=== PATIENT | male | born 1960 | race African-American/Black ===

== ENCOUNTER 2017-08-18 23:23 | Observation (INO) | payer OTHER, MEDICARE ==
[2017-08-18] MEDS ORDERED: ASPIRIN 81 MG TABLET, CHEWABLE PO ONE (23:27)
--- NOTE | 2017-08-18 23:46 | ER Document Report ---
ED General - General Stated Complaint: CHEST PAIN Time Seen by Provider: 08/18/17 23:44 Mode of Arrival: Medic Information source: Patient Notes: This is a 57-year-old man with a history of hypertension, dyslipidemia, coronary artery disease (cardiac stent 1) who presents to the emergency room with left-sided chest tightness, palpitations and shortness of breath. Patient states he experienced some of the symptoms last night when sleeping and then experienced it this evening. - HPI Onset: Yesterday Onset/Duration: Gradual Quality of pain: Dull Severity: Moderate Pain Level: 2 Associated symptoms: Chest pain, Shortness of breath. denies: Nonproductive cough, Productive cough, Fever Exacerbated by: Denies Relieved by: Denies Similar symptoms previously: Yes Recently seen / treated by doctor: No Past Medical History - General Information source: Patient - Social History Smoking Status: Never Smoker Cigarette use (# per day): No Chew tobacco use (# tins/day): No Frequency of alcohol use: None Drug Abuse: None Lives with: Family Family History: None Patient has suicidal ideation: No Patient has homicidal ideation: No - Past Medical History Cardiac Medical History: Reports: Hx Coronary Artery Disease, Hx Hypercholesterolemia, Hx Hypertension Pulmonary Medical History: Reports: None EENT Medical History: Reports: None Neurological Medical History: Reports: None Endocrine Medical History: Reports: None Renal/ Medical History: Reports: None Malignancy Medical History: Reports None GI Medical History: Reports: None Musculoskeltal Medical History: Reports Other - Chronic pain Skin Medical History: Reports None Psychiatric Medical History: Reports: None Traumatic Medical History: Reports: None Infectious Medical History: Reports: None Past Surgical History: Reports: Hx Cardiac Catheterization Review of Systems - Review of Systems Constitutional: denies: Chills, Fever EENT: No symptoms reported Cardiovascular: See HPI Respiratory: See HPI Gastrointestinal: No symptoms reported Genitourinary: No symptoms reported Male Genitourinary: No symptoms reported Musculoskeletal: No symptoms reported Skin: No symptoms reported Hematologic/Lymphatic: No symptoms reported Neurological/Psychological: No symptoms reported Physical Exam - Vital signs Vitals: Pulse Ox 97 08/18/17 23:27 Notes: Physical exam: GENERAL: HEAD: Atraumatic, normocephalic. EYES: Pupils equal round and reactive to light, extraocular movements intact, sclera anicteric, conjunctiva are normal. ENT: TMs normal, nares patent, oropharynx clear without exudates. Moist mucous membranes. NECK: Normal range of motion, supple without obvious mass or JVD. LUNGS: Breath sounds clear to auscultation bilaterally and equal. No wheezes rales or rhonchi. HEART: Regular rate and rhythm without murmurs, rubs or gallops. ABDOMEN: Soft, normoactive bowel sounds. No tenderness to palpation. No guarding, no rebound. No masses appreciated. EXTREMITIES: Braces to both lower extremities NEUROLOGICAL: Cranial nerves II through XII grossly intact. Normal speech, moving all extremities. PSYCH: Normal mood, normal affect. SKIN: Warm, Dry, normal turgor, no rashes or lesions noted. Course - Vital Signs Vital signs: Temp Pulse Resp BP Pulse Ox 17 116/60 96 08/19/17 02:01 08/19/17 02:01 08/19/17 02:01 - Laboratory Result Diagrams: 08/18/17 23:53 08/18/17 23:53 Laboratory results interpreted by me: 08/18/17 08/18/17 23:53 23:53 MCH 33.5 H Eosinophils % 7.8 H Sodium 146.6 H Creatine Kinase 357 H - Diagnostic Test Radiology reviewed: Image reviewed, Reports reviewed - The chest x-ray is interpreted as some atelectasis with a possible infiltrate (patient has not had any cough, fever or sputum production). - EKG Interpretation by Me Rate: Normal Rhythm: NSR - EKG shows normal sinus rhythm with a ventricular rate of 52, there are inverted T waves anteriorly and there is no old EKG to compare. Right -sided leads show no ST elevation in V4. Discharge - Discharge Clinical Impression: Chest pain Condition: Stable Disposition: ADMITTED OBSERVATION Admitting Provider: Hospitalist - Dr. Greene Unit Admitted: Telemetry
[2017-08-19 00:13] LABS: ABSOLUTE BASOPHILS # (AUTO) 0.1 10^3/uL (0.0-0.2); ABSOLUTE EOSINOPHILS # (AUTO) 0.6 10^3/uL (0.0-0.6); ABSOLUTE MONOCYTES (AUTO) 0.6 10^3/uL (0.1-1.4); ABSOLUTE NEUT (AUTO) 4.3 10^3/uL (1.7-8.2); BASOPHILS % (AUTO) 1.4 % (0-2); EOSINOPHILS % (AUTO) 7.8 % (0-6); HEMOGLOBIN 15.7 g/dL (13.5-17.0); HGB HCT DIFFERENCE 2.1; LYMPHOCYTES % (AUTO) 26.7 % (13-45); MEAN CORPUSCULAR HEMOGLOBIN 33.5 pg (27.0-33.4); MEAN CORPUSCULAR HGB CONC 34.8 g/dL (32.0-36.0); MEAN CORPUSCULAR VOLUME 96 fl (80-97); MONOCYTES % (AUTO) 7.6 % (3-13); RED BLOOD COUNT 4.67 10^6/uL (4.35-5.55); RED CELL DISTRIBUTION WIDTH 13.6 % (11.5-14.0); SEGMENTED NEUTROPHILS % (AUTO) 56.5 % (42-78); WHITE BLOOD COUNT 7.6 10^3/uL (4.0-10.5)
[2017-08-19 00:24] LABS: ALANINE AMINOTRANSFERASE 32 U/L (21-72); ALBUMIN 4.3 g/dL (3.5-5.0); ALKALINE PHOSPHATASE 98 U/L (38-126); ANION GAP 14 (5-19); ASPARTATE AMINO TRANSFERASE 23 U/L (17-59); BILIRUBIN,DIRECT 0.3 mg/dL (0.0-0.4); BILIRUBIN,TOTAL 0.4 mg/dL (0.2-1.3); BLOOD UREA NITROGEN 17 mg/dL (7-20); CALCIUM 9.7 mg/dL (8.4-10.2); CARBON DIOXIDE 27 mmol/L (22-30); CHLORIDE 106 mmol/L (98-107); CREATINE KINASE 357 U/L (55-170); CREATININE RESULT 1.09 mg/dL (0.52-1.25); GLUCOSE 108 mg/dL (75-110); SODIUM 146.6 mmol/L (137-145); TOTAL PROTEIN 7.2 g/dL (6.3-8.2)
[2017-08-19 00:36] LABS: CREATINE KINASE MB 4.24 ng/mL (<4.55); TROPONIN I < 0.012 ng/mL
--- NOTE | 2017-08-19 00:39 | RADIOLOGY REPORT (SQ) ---
EXAM DESCRIPTION: CHEST SINGLE VIEW COMPLETED DATE/TIME: 08/19/2017 12:03 am REASON FOR STUDY: cp COMPARISON: None. EXAM PARAMETERS: NUMBER OF VIEWS: One view. TECHNIQUE: Single frontal radiographic view of the chest acquired. RADIATION DOSE: NA LIMITATIONS: None. FINDINGS: LUNGS AND PLEURA: Possible streakiness of the left lung base. Minimal blunting of the lef t costophrenic angle. MEDIASTINUM AND HILAR STRUCTURES: No masses. Contour normal. HEART AND VASCULAR STRUCTURES: Heart normal in size. Normal vasculature. BONES: No acute findings. HARDWARE: None in the chest. OTHER: No other significant finding. IMPRESSION: Small left lower lobar pneumonia/atelectasis. 7-12 week surveilance radiographs recomme nded. TECHNICAL DOCUMENTATION: JOB ID: [id number]
[2017-08-19] MEDS ORDERED: MORPHINE SULFATE 10 MG/ML INJ IV ONE (01:15)
[2017-08-19] MEDS ORDERED: NITROGLYCERIN 2% OINTMENT 1 GM PACKET TP ONE (01:16)
[2017-08-19] MEDS ORDERED: PROMETHAZINE HCL 25 MG TABLET PO PRN (04:32)
[2017-08-19] MEDS ORDERED: ACETAMINOPHEN 325 MG TABLET PO PRN (04:32)
[2017-08-19] MEDS ORDERED: MAG HYDROX/AL HYDROX/SIMETH SUSP 30 ML UDCUP PO PRN (08:04)
--- NOTE | 2017-08-19 08:09 | EKG REPORT ---
SEVERITY:- ABNORMAL ECG - SINUS RHYTHM LEFT ANTERIOR FASCICULAR BLOCK ANTERIOR INFARCT, AGE INDETERMINATE : Confirmed by: Brijesh Levine MD 19-Aug-2017 08:09:29
--- NOTE | 2017-08-19 08:10 | EKG REPORT ---
SEVERITY:- ABNORMAL ECG - SINUS RHYTHM LEFT ANTERIOR FASCICULAR BLOCK ABNORMAL T, CONSIDER ISCHEMIA, LATERAL LEADS : Confirmed by: Brijesh Levine MD 19-Aug-2017 08:09:46
[2017-08-19] MEDS ORDERED: NICOTINE 7 MG/24 HR PATCH.TD24 TD PRN (08:48)
--- NOTE | 2017-08-19 08:48 | PDOC H&P ---
History of Present Illness Admission Date/PCP: 08/19/17 01:28 Primary CARE provider none Patient complains of: Chest pain History of Present Illness: YA ROBLERO is a 57 year old -Gabonese male with underlying known coronary artery disease, having undergone stent implant 1 in 2007 who presents to the emergency room for evaluation of above complaint. Patient has been discussed with emergency room physician who evaluated the patient. He describes the onset the evening of the , as he was trying to sleep, of mild to moderate intensity left-sided chest tightness, palpitations, and shortness of breath. Increased with certain movements and deep breathing. No radiation of the discomfort. Positive associated sweating. States the pain is quite similar to that he experienced prior to the time when he had his stent implant. No history of congestive heart failure, atrial fibrillation, or atrial flutter. No history of pulmonary embolus or DVT. No recent long trip with prolonged inactivity, or unusual lower extremity swelling or tenderness. Denies fever or chills or cough. Currently resting quietly, chest pain-free. Dictation via voice recognition software. Laboratory results are listed in [facility] and are reviewed. X-ray summary results are listed below, with full report(s) reviewed. EKG 2 reviewed. No prior EKG available for comparison. Social history/personal habits: . One child. Unemployed. 3-4 cigars per week. Occasional glass of wine. Occasional marijuana. Denies other illicit drug use. Allergies/adverse reactions are listed in [facility] and are reviewed. Home medications initially autopopulated into [employer] may not accurately reflect patient's true medications, dosages, and/or frequencies. seating and mobility technologist to reconcile medications. Unfortunately, patient not certain of medications/dosages/frequencies. REVIEW OF SYSTEMS: Constitutional: See history and present illness. Eyes: Wears glasses. ENT: No swallowing problems or complaints. Denies hearing loss. Pulmonary: See history and present illness. Cardiovascular: See history and present illness. Gastrointestinal: No current complaints, including nausea or vomiting. Skin: No current complaints, including rashes. Hematologic: Denies easy bruising. Neurologic: No current complaints, including numbness or tingling. Musculoskeletal: Joint pain from arthritis. Psychiatric: Mild anxiety and depression. Denies suicidal or homicidal ideation. Endocrine: No current complaints, including polyuria. Genitourinary: No current complaints, including dysuria. PHYSICAL EXAMINATION: 5 feet 10 inches tall. 102.1 kg. BMI 32.3 kg/m. Temperature 98.3. Pulse 50 and regular. Blood pressure 147/71. Respirations are 18 and unlabored. 97% saturation on room air. Slightly obese otherwise well-developed -Gabonese male appearing approximately his stated age. Pleasant awake alert and cooperative. Rather talkative gentleman. No obvious distress other than somewhat anxious. Female floor nurse Isabela present. Skin is warm and dry. No grossly obvious evidence of rash in areas of skin examined. No subcutaneous nodules palpated. ENT: Hearing grossly normal to normal conversation. Tongue midline on protrusion pink and slightly tacky. Eyes: No scleral icterus. Pupils equal and reactive to light at 4 mm. Old [place] conjunctivae. Neck is supple and nontender to gentle active range of motion and palpation. Midline trachea. No palpable thyroid nodule mass enlargement or tenderness. Lymphatic: No palpable cervical or clavicular nodes. Neck and lymphatic exams limited by patient body habitus. Psychiatric: Reasonable insight into acute and chronic medical issues. Oriented to time location and why here. Lungs: Auscultation reveals clear and equal breath sounds bilaterally. No use of accessory respiratory muscles. Cardiovascular: Heart regular rate and rhythm, without gallop murmur or rub. No carotid or abdominal aortic bruits. No ankle or pedal edema. Palpable dorsalis pedis pulses. Abdomen:soft slightly obese nontender with positive bowel sounds. Unable to adequately evaluate abdomen for masses or organomegaly due to body habitus. Upper abdominal compression does not reproduce his previously noted chest discomfort, but left anterior chest wall compression does. Extremities: Feet are warm and dry. No calf tenderness to compression. No grossly obvious visual evidence of calf swelling. Gentle manipulation of lower extremities fails to reveal any obvious evidence of injury or instability to knees hips or ankles, though patient has fairly restricted range of motion at ankles due to prior bilateral ankle fusion surgery. Neurologic: Moves upper extremities grossly normally. Patellar reflexes absent. Absent Babinski. Light touch is intact at feet. Dorsiflexion and plantarflexion of feet 4 / 5 and symmetric. Past Medical History Cardiac Medical History: Reports: Coronary Artery Disease, Hyperlipidema, Hypertension Denies: Atrial Fibrillation, Congestive Heart Failure, DVT, Pulmonary Embolism Pulmonary Medical History: Reports: Sleep Apnea - Uncertain settings on his home machine Denies: Asthma, Chronic Obstructive Pulmonary Disease (COPD) EENT Medical History: Reports: Eyes - Reading glasses Denies: Ears, Throat Neurological Medical History: Denies: Hemorrhagic CVA, Ischemic CVA, Seizures Endocrine Medical History: Denies: Diabetes Mellitus Type 1, Diabetes Mellitus Type 2, Hyperthyroidism, Hypothyroidism Renal/ Medical History: Reports: Other - Occasional hematuria since his prostatectomy for carcinoma; prior MD aware. Malignancy Medical History: Reports: None, Other - Prostate GI Medical History: Denies: Cirrhosis, Gastroesophageal Reflux Disease, Hepatitis, Peptic Ulcer Disease Musculoskeltal Medical History: Reports: Arthritis Skin Medical History: Reports: None Psychiatric Medical History: Reports: Alcohol Dependency, Depression, General Anxiety Disorder, Substance Abuse, Tobacco Dependency, Other - Occasional marijuana; Occasional glass of wine Traumatic Medical History: Reports: None Infectious Medical History: Denies: Hepatitis B, Hepatitis C Past Surgical History Past Surgical History: Reports: Coronary Stent - 2007, Orthopedic Surgery - Bilateral ankle fusion, due to adverse reaction to nifedipine, per pt., Other - Prostatectomy for carcinoma Social History Information Source: Patient, Emergency Med Personnel, [facility] Records Lives with: Family Smoking Status: Current Some Day Smoker Frequency of Alcohol Use: Occasional Hx Recreational Drug Use: No Drugs: Marijuana Hx Prescription Drug Abuse: No - Advance Directive Resuscitation Status: Full Code Surrogate healthcare decision maker:: Family History Family History: None Parental Family History Reviewed: Yes - Uncertain cause of parents deaths Children Family History Reviewed: Yes - Healthy Sibling(s) Family History Reviewed.: Yes - Healthy Medication/Allergy Home Medications: Amlodipine Besylate [Norvasc 10 mg Tablet] 10 mg PO DAILY 08/19/17 Atorvastatin Calcium [Lipitor 40 mg Tablet] 40 mg PO QHS 08/19/17 Citalopram Hydrobromide [Celexa 40 mg Tablet] 40 mg PO DAILY 08/19/17 Losartan Potassium [Cozaar 100 mg Tablet] 100 mg PO DAILY 08/19/17 RX: Allopurinol [Zyloprim 100 mg Tablet] 100 mg PO DAILY 08/19/17 RX: Aspirin [Ecotrin 81 mg EC Tablet] 81 mg PO DAILY tabec 08/19/17 Allergies/Adverse Reactions: nifedipine Allergy (Verified 08/19/17 06:21) Physical Exam Vital Signs: Temp Pulse Resp BP Pulse Ox 98.3 F 42 L 18 147/71 H 97 08/19/17 04:09 08/19/17 07:00 08/19/17 04:09 08/19/17 04:09 08/19/17 04:09 Intake & Output 08/18/17 08/19/17 08/20/17 00:59 00:59 00:59 Weight 102.1 kg Results Laboratory Results: 08/19/17 05:00 Troponin I < 0.012 Impressions: Chest X-Ray 08/18/17 23:27 IMPRESSION: Small left lower lobar pneumonia/atelectasis. 7-12 week surveilance radiographs recommended. Assessment & Plan - Diagnosis (1) Abnormal chest x-ray Is this a current diagnosis for this admission?: Yes Plan: Suspect only atelectasis; no biochemical or outward clinical evidence of pneumonia. Will forego antibiotics at this point in time. Incentive spirometry. (2) Elevated d-dimer Is this a current diagnosis for this admission?: Yes Plan: Ventilation/perfusion lung scan. (3) Precordial chest pain Is this a current diagnosis for this admission?: Yes Plan: Likely musculoskeletal, but given his known coronary artery disease, Patient will be placed in observation bed under chest pain protocol. Patient understands to notify staff should chest pain recur. Serial troponin . Repeat EKG. lipid panel. I have strongly encouraged patient to be careful getting out of bed, to avoid a fall with injury. Knee high SCDs for DVT prophylaxis, along with subcu Lovenox. Impression and plans were discussed with patient, who concurs . Time spent in evaluation and management of patient: 63 minutes. (4) Marijuana use Is this a current diagnosis for this admission?: Yes (5) Stented coronary artery Is this a current diagnosis for this admission?: Yes (6) HLD (hyperlipidemia) Qualifiers: Hyperlipidemia type: unspecified Qualified Code(s): E78.5 - Hyperlipidemia , unspecified Is this a current diagnosis for this admission?: Yes Plan: Lipid panel. Resume home medications as appropriate once these have been determined and reviewed. (7) History of COPD Is this a current diagnosis for this admission?: Yes (8) COSMO (obstructive sleep apnea) Is this a current diagnosis for this admission?: Yes Plan: CPAP nightly (9) Tobacco dependency Is this a current diagnosis for this admission?: Yes Plan: As needed nicotine patch - Time Time Spent: 50 to 70 Minutes Medications reviewed and adjusted accordingly: No - Patient uncertain about meds. Anticipated discharge: Home Within: within 24 hours
--- NOTE | 2017-08-19 09:23 | RADIOLOGY REPORT (SQ) ---
EXAM DESCRIPTION: NM LUNG VENT/PERF SCAN COMPLETED DATE/TIME: 08/19/2017 9:16 am REASON FOR STUDY: elev d dimer COMPARISON: Single-view chest from yesterday. RADIONUCLIDE AND DOSE: 5.3 millicuries TC-99m MAA Intravenous 30.4 millicuries TC-99m DTPA Inhaled aerosol TECHNIQUE: Eight views of the lungs acquired post ventilation of DTPA aerosol. Eight matching views of the lungs acquired following injection of MAA. LIMITATIONS: None. FINDINGS: VENTILATION: Symmetric and homogeneous distribution of DTPA aerosol during ventilatory pha se. No significant areas of photopenia. PERFUSION: Perfusion images with normal homogenous activity and no wedge-shaped or segmental defects. No ventilation-perfusion mismatches. OTHER: No other significant finding. IMPRESSION: NORMAL VENTILATION-PERFUSION LUNG SCAN. NEGATIVE FOR PULMONARY EMBOLI. TECHNICAL DOCUMENTATION: JOB ID: [id number] [employer]- All Rights Reserved
[2017-08-19] MEDS ORDERED: ENOXAPARIN SODIUM INJ 40 MG/0.4 ML DISP.SYRIN SUBCUT SCH (10:00)
[2017-08-19] MEDS ORDERED: ASPIRIN 81 MG TABLET, ENT COATED PO SCH (10:00)
[2017-08-19] MEDS ORDERED: DOCUSATE SODIUM 100 MG CAPSULE PO SCH (10:00)
[2017-08-19 11:28] LABS: CHOLESTEROL 168.96 mg/dL (0-200); Direct HDL 40 mg/dL (>40); TRIGLYCERIDES 74 mg/dL (<150)
[2017-08-19 11:39] LABS: DIRECT LDL 120 mg/dL (<100)
[2017-08-19 12:48] VITALS: BP 159/85
--- NOTE | 2017-08-19 13:33 | PDOC TRANSFER SUMMARY ---
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 Low clinical suspicion of cardiac source of pain. Troponins negative. Unfortunately, nuclear stress testing must be delayed x 48 hrs 2/2 V/Q scan which was completed earlier today and pt is unable to participate in treadmill testing. Pt is agreeable with close Cardiology follow-up for outpatient echo and stress testing. D/C home on ASA and to continue Statin. (2) Elevated d-dimer Is this a current diagnosis for this admission?: Yes Summary: Ventilation-perfusion lung scan negative for pulmonary emboli. Low clinical suspicion for PE. (3) SOB (shortness of breath) Summary: Resolved. Wears CPAP nightly for COPD. (4) Marijuana use Is this a current diagnosis for this admission?: Yes (5) Stented coronary artery Is this a current diagnosis for this admission?: Yes Summary: S/p cardiac stent x1 2007. (6) HLD (hyperlipidemia) Is this a current diagnosis for this admission?: Yes Summary: Lipid panel reviewed and acceptable; continue home Statin. (7) COSMO (obstructive sleep apnea) Is this a current diagnosis for this admission?: Yes (8) Tobacco dependency Is this a current diagnosis for this admission?: Yes - Additional Information Resuscitation Status: Full Code Discharge Diet: Cardiac Discharge Activity: Activity As Tolerated, Balance Activity w/Rest Home Medications: Allopurinol [Zyloprim 100 mg Tablet] 100 mg PO DAILY 08/19/17 Amlodipine Besylate [Norvasc 10 mg Tablet] 10 mg PO DAILY 08/19/17 Aspirin [Ecotrin 81 mg EC Tablet] 81 mg PO DAILY tabec 08/19/17 Atorvastatin Calcium [Lipitor 40 mg Tablet] 40 mg PO QHS 08/19/17 Citalopram Hydrobromide [Celexa 40 mg Tablet] 40 mg PO DAILY 08/19/17 Losartan Potassium [Cozaar 100 mg Tablet] 100 mg PO DAILY 08/19/17 History of Present Illness Admission Date/PCP: 08/19/17 08:04 Hospital Course Hospital Course: Pt was admitted for Chest Pain observation early this AM for left sternal chest pain with left arm heaviness. He reported that the pain was similar to previous episode when he underwent cardiac stenting x1 in 2007. He denies associated solitario, dizziness, dyspnea, diaphoresis, or nausea. Initial troponin was negative, but given his known coronary artery disease, he was admitted with chest pain protocol. Serial troponins remained negative. He did have an elevated d-dimer and so underwent a V/Q scan which was negative for PE. Unfortunately, nuclear stress testing must be delayed x 48 hrs secondary to the V/Q scan and pt is unable to participate in treadmill testing. Cardiology was consulted; however, would not be able to see patient until late this evening. Pt reports that his chest pain has resolved and that he wishes to be discharged home with close Cardiology follow-up for outpatient echo and stress testing. D/C home on ASA and to continue Statin. Physical Exam Vital Signs: Temp Pulse Resp BP Pulse Ox 97.9 F 78 19 159/85 H 96 08/19/17 10:00 08/19/17 10:00 08/19/17 10:00 08/19/17 10:00 08/19/17 10:00 General appearance: PRESENT: no acute distress, well-developed, well-nourished Head exam: PRESENT: atraumatic, normocephalic Eye exam: PRESENT: conjunctiva pink, EOMI, PERRLA. ABSENT: scleral icterus Ear exam: PRESENT: normal external ear exam Mouth exam: PRESENT: moist, tongue midline Neck exam: PRESENT: tenderness - Left lateral tenderness w/ palpation and movement. ABSENT: carotid bruit, JVD, lymphadenopathy, thyromegaly Respiratory exam: PRESENT: clear to auscultation lalo, symmetrical, unlabored. ABSENT: rales, rhonchi, wheezes Cardiovascular exam: PRESENT: RRR, +S1, +S2. ABSENT: diastolic murmur, gallop, rubs, systolic murmur Pulses: PRESENT: normal dorsalis pedis pul Vascular exam: PRESENT: normal capillary refill GI/Abdominal exam: PRESENT: normal bowel sounds, soft. ABSENT: distended, guarding, mass, organolmegaly, rebound, tenderness Rectal exam: PRESENT: deferred Extremities exam: PRESENT: full ROM. ABSENT: calf tenderness, clubbing, pedal edema Musculoskeletal exam: PRESENT: ambulatory, full ROM Neurological exam: PRESENT: alert, awake, oriented to person, oriented to place , oriented to time, oriented to situation, CN II-XII grossly intact. ABSENT: motor sensory deficit Psychiatric exam: PRESENT: appropriate affect, normal mood. ABSENT: homicidal ideation, suicidal ideation Skin exam: PRESENT: dry, intact, warm. ABSENT: cyanosis, rash Results Laboratory Results: 08/19/17 10:50 Triglycerides 74 Cholesterol 168.96 LDL Cholesterol Direct 120 H VLDL Cholesterol 15.0 HDL Cholesterol 40 08/19/17 10:50 Troponin I < 0.012 Impressions: Chest X-Ray 08/18/17 23:27 IMPRESSION: Small left lower lobar pneumonia/atelectasis. 7-12 week surveilance radiographs recommended. Lung Scan-VQ CA 08/19/17 06:46 IMPRESSION: NORMAL VENTILATION-PERFUSION LUNG SCAN. NEGATIVE FOR PULMONARY EMBOLI. Plan Time Spent: Greater than 30 Minutes
[2017-08-19] MEDS ORDERED: INFLUENZA ADLT QUAD (36MOS+) 2017-18 VAC 0.5 ML SYR IM PRN (13:52)
--- NOTE | 2017-08-19 18:15 | EKG REPORT ---
SEVERITY:- ABNORMAL ECG - SINUS BRADYCARDIA LEFT ANTERIOR FASCICULAR BLOCK NONSPECIFIC T ABNORMALITIES, DIFFUSE LEADS : Confirmed by: Brijesh Levine MD 19-Aug-2017 18:14:23
--- NOTE | 2017-08-19 19:27 | PDOC CONSULTATION ---
Consultation Consult Date: 08/19/17 Attending physician:: EDGARDO MCCOLLUM Consult reason:: Chest pain History of Present Illness Admission Date/PCP: 08/19/17 08:04 Patient complains of: Chest pain History of Present Illness: YA ROBLERO is a 57 year old -[place] male with underlying known coronary artery disease, having undergone stent implant 1 in 2007 who presents to the emergency room for evaluation of above complaint. He describes the onset on the evening of the , as he was trying to sleep of mild to moderate intensity left-sided chest tightness, palpitations, and shortness of breath. Increased with certain movements and deep breathing. No radiation of the discomfort. Positive associated sweating. States the pain is quite similar to that he experienced prior to the time when he had his stent implant. No history of congestive heart failure, atrial fibrillation, or atrial flutter. No history of pulmonary embolus or DVT. No recent long trip with prolonged inactivity, or unusual lower extremity swelling or tenderness. Denies fever or chills or cough. Currently resting quietly, chest pain-free. This history was reviewed, supplemented and confirmed. So far patient's cardiac enzymes has been negative 3. EKG shows minor nonspecific T-wave inversion. VQ scan was noted to be negative. Patient was recommended to have a nuclear stress test but he declined to pursue this as an inpatient. Patient therefore advised to follow with me tomorrow in the office. Past Medical History Cardiac Medical History: Reports: Coronary Artery Disease, Hyperlipidema, Hypertension Denies: Atrial Fibrillation, Congestive Heart Failure, DVT, Pulmonary Embolism Pulmonary Medical History: Reports: None, Sleep Apnea - Uncertain settings on his home machine Denies: Asthma, Chronic Obstructive Pulmonary Disease (COPD) EENT Medical History: Reports: None, Eyes - Reading glasses Denies: Ears, Throat Neurological Medical History: Reports: None Denies: Hemorrhagic CVA, Ischemic CVA, Seizures Endocrine Medical History: Reports: None Denies: Diabetes Mellitus Type 1, Diabetes Mellitus Type 2, Hyperthyroidism, Hypothyroidism Renal/ Medical History: Reports: None, Other - Occasional hematuria since his prostatectomy for carcinoma; prior MD aware. Malignancy Medical History: Reports: None, Other - Prostate GI Medical History: Reports: None Denies: Cirrhosis, Gastroesophageal Reflux Disease, Hepatitis, Peptic Ulcer Disease Musculoskeltal Medical History: Reports: Arthritis, Other - Chronic pain Skin Medical History: Reports: None Psychiatric Medical History: Reports: None, Alcohol Dependency, Depression, General Anxiety Disorder, Substance Abuse, Tobacco Dependency, Other - Occasional marijuana; Occasional glass of wine Traumatic Medical History: Reports: None Infectious Medical History: Reports: None Denies: Hepatitis B, Hepatitis C Past Surgical History Past Surgical History: Reports: Cardiac Catheterization, Coronary Stent - 2007, Orthopedic Surgery - Bilateral ankle fusion, due to adverse reaction to nifedipine, per pt., Other - Prostatectomy for carcinoma Social History Information Source: Patient Lives with: Family Smoking Status: Current Some Day Smoker Frequency of Alcohol Use: Occasional Hx Recreational Drug Use: No Drugs: Marijuana Hx Prescription Drug Abuse: No - Advance Directive Resuscitation Status: Full Code Surrogate healthcare decision maker:: Patient's live-in girlfriend is surrogate decision maker. Family History Family History: None, Hypertension Parental Family History Reviewed: Yes Children Family History Reviewed: Yes Sibling(s) Family History Reviewed.: Yes Medication/Allergy Home Medications: Allopurinol [Zyloprim 100 mg Tablet] 100 mg PO DAILY 08/19/17 Amlodipine Besylate [Norvasc 10 mg Tablet] 10 mg PO DAILY 08/19/17 Aspirin [Ecotrin 81 mg EC Tablet] 81 mg PO DAILY tabec 08/19/17 Atorvastatin Calcium [Lipitor 40 mg Tablet] 40 mg PO QHS 08/19/17 Citalopram Hydrobromide [Celexa 40 mg Tablet] 40 mg PO DAILY 08/19/17 Losartan Potassium [Cozaar 100 mg Tablet] 100 mg PO DAILY 08/19/17 Allergies/Adverse Reactions: nifedipine Allergy (Verified 08/19/17 06:21) Review of Systems Review of Systems: Please see history of present illness and past medical history as wall. Constitutional: No fever or chills reported. Head : No recent chronic headaches, recent head injury. Eyes: No recent eye pain, diplopia, redness, discharge, acute visual changes. Ears: No recent chronic ear pain, acute hearing loss, ear discharge. Oral cavity: No recent ulcerations, bleeding, oral cavity discomfort. Neck: No recent acute neck pain reported. Hematologic: No recent easy bruising or bleeding or hematologic malignancy reported. Lymphatic: No recent lymphatic malignancy, chronic lymphadenopathy reported yet Cardiovascular system review: See history of present illness. Respiratory system review: No recent chronic cough, hemoptysis, blood clots in the lungs reported. Mild Shortness of breath on exertion Gastrointestinal system review: Negative for any recent acute or chronic abdominal pain, hematemesis, melena, recent change in bowel habits. Genitourinary system review: No recent acute or chronic hematuria, flank pain, UTI etc. reported. Skin system review: Negative for any recent abnormal bruising, no rash, no pruritus reported. Neurologic: No prior history of strokes, mini strokes, seizure disorder. Psychologic: No history of major psychosis or major depression reported. Musculoskeletal: Minor aches and pains reported. No acute joint swelling reported. Patient has history of gout and currently wearing bilateral ankle braces for this and possibly for dropped foot bilaterally. Endocrine: No recent polyuria, polydipsia, recent heat or cold intolerance. Physical Exam Vital Signs: Temp Pulse Resp BP Pulse Ox 97.9 F 78 19 159/85 H 96 08/19/17 13:48 08/19/17 13:48 08/19/17 13:48 08/19/17 13:48 08/19/17 13:48 Exam: GENERAL: well-nourished and in no acute distress. Alert and oriented x3 HEAD: Atraumatic, normocephalic. EYES: Pupils equal round and reactive to light, extraocular movements intact, sclera anicteric, conjunctiva are normal. ENT: TMs normal, nares patent, oropharynx clear without exudates. Moist mucous membranes. No oral ulcerations or bleeding gums noted NECK: supple without lymphadenopathy. Trachea is central. No cervical or axillary lymphadenopathy noted. Carotids are 2+, JVD WNL LUNGS: Respiration seems nonlabored, no significant accessory muscle action noted. Breath sounds clear to auscultation bilaterally and equal noted. No wheezes rales or rhonchi noted. No significant dullness noted on percussion. CHEST: Palpation of the chest wall shows no significant chest wall tenderness. No other significant abnormalities noted. 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 ABDOMEN: Soft, no significant tenderness appreciated, normoactive bowel sounds. No guarding, no rebound. No rigidity noted . No masses appreciated. EXTREMITIES: Pedal pulses are 1-2+, no calf tenderness noted. No clubbing or cyanosis.trace to 1+ pedal edema noted NEUROLOGICAL: Focused neurological exam showed no significant neurologic deficit. Normal speech, no focal weakness appreciated. PSYCH: Normal mood, normal affect. Judgment and insight within normal limits. SKIN: No significant ecchymosis, rash, ulcerations or signs of pruritus noted. MUSCULOSKELETAL EXAM: No significant joint swelling noted. Both ankles noted bilaterally with ankle braces and support. Results Laboratory Results: 08/19/17 10:50 Triglycerides 74 Cholesterol 168.96 LDL Cholesterol Direct 120 H VLDL Cholesterol 15.0 HDL Cholesterol 40 08/19/17 10:50 Troponin I < 0.012 EKG Comments: Sinus rhythm, minor nonspecific T-wave inversion lateral chest leads. Possible LVH Impressions: Chest X-Ray 08/18/17 23:27 IMPRESSION: Small left lower lobar pneumonia/atelectasis. 7-12 week surveilance radiographs recommended. Lung Scan-VQ NM 08/19/17 06:46 IMPRESSION: NORMAL VENTILATION-PERFUSION LUNG SCAN. NEGATIVE FOR PULMONARY EMBOLI. Assessment & Plan - Diagnosis (1) Chest pain Qualifiers: Chest pain type: unspecified Qualified Code(s): R07.9 - Chest pain, unspecified Is this a current diagnosis for this admission?: Yes (2) SOB (shortness of breath) Is this a current diagnosis for this admission?: Yes (3) HLD (hyperlipidemia) Qualifiers: Hyperlipidemia type: unspecified Qualified Code(s): E78.5 - Hyperlipidemia , unspecified Is this a current diagnosis for this admission?: Yes (4) History of COPD Is this a current diagnosis for this admission?: Yes (5) COSMO (obstructive sleep apnea) Is this a current diagnosis for this admission?: Yes (6) Stented coronary artery Is this a current diagnosis for this admission?: Yes (7) Tobacco dependency Is this a current diagnosis for this admission?: Yes - Notes Notes: Chest pain: So far cardiac enzymes are negative. EKG not showing any acute ST segment changes. Feel that patient will benefit from a nuclear stress test. This is in view of history of prior stent placement and known CAD. Patient however wishes to have this performed as an outpatient. Patient will be seen in the office. Shortness of breath: Patient has been advised to quit smoking. Patient to report any further problems or any worsening. Hyperlipidemia: LDL goal is less than 70. Recommend statin therapy at least intermediate or high dose, of high potency status. Periodic lipid panel and liver panel is indicated. Patient to report any significant muscle discomfort or other side effects. COPD: Patient advised in smoking cessation. Obstructive sleep apnea: Patient advised compliance with CPAP therapy. Stented coronary arteries: Currently stable. Patient to continue with dual antiplatelet therapy. Tobacco dependency: Tobacco cessation advised. - Time Time Spent: 30 to 50 Minutes - CODE STATUS was discussed, patient remains full code. Surrogate decision-maker unchanged. Multiple medical problems were addressed. More than 50% of the time spent coordinating care, discussing management plans with involved caregivers. Management plans discussed with involved personnels. Medical decision making was of moderate to high complexity , patient's has multiple comorbidities. Medications reviewed and adjusted accordingly: Yes
--- NOTE | 2017-08-20 13:24 | XCELERA REPORT ---
[address] [address] Transthoracic Echocardiogram Report Name: YA ROBLERO Age: 57 yrs Gender: Male : 1960 Patient Status: Inpatient Patient Location: [address] [place] [address] Study Date: 08/19/2017 02:20 PM Height: 70 in Weight: 225 lb BSA: 2.2 m2 Procedure: A complete two-dimensional transthoracic echocardiogram was performed (2D, M-mode, spectral and color flow Doppler). The study was technically adequate with some images being suboptimal in quality. Reason For Study: chest pain Ordering Physician: MAGAN GILLETTE Performed By: Nataly Rebolledo Interpretation Summary The left ventricular ejection fraction is normal. There is mild concentric left ventricular hypertrophy. Doppler measurements suggest pseudonormalized left ventricular relaxation, which is associated with grade II/IV or mild to moderate diastolic dysfunction The left ventricle is grossly normal size. Wall motion cannot be accurately commented on, but no definite regional wall motion abnormalities noted. The right ventricular systolic function is normal. The left atrium is moderately dilated. The right atrium is normal in size There is a trace to mild amount of mitral regurgitation There is no mitral valve stenosis. There is a mild amount of aortic regurgitation There is no aortic valve stenosis There is a trace or physiologic amount of tricuspid regurgitation Tricuspid regurgitation jet envelope not well defined to measure RV systolic pressure accurately. The aortic root is not well visualized but is probably normal size. The inferior vena cava appeared normal and decreased > 50% with respiration (RAP 5-10 mmHg) There is no pericardial effusion. MMode/2D Measurements & Calculations RVDd: 3.5 cm LVIDd: 5.8 cm FS: 32.5 % Ao root diam: 3.4 cm IVSd: 1.3 cm LVIDs: 3.9 cm EDV(Teich): 169.8 ml LVPWd: 1.3 cm ESV(Teich): 67.9 ml Ao root area: 9.1 cm2 EF(Teich): 60.0 % LA dimension: 4.6 cm Doppler Measurements & Calculations MV E max jackie: MV P1/2t max jackie: Ao V2 max: AI max jackie: 103.2 cm/sec 101.7 cm/sec 141.6 cm/sec 484.5 cm/sec MV A max jackie: MV P1/2t: 65.3 msec Ao max PG: AI max P.9 cm/sec 8.0 mmHg 93.9 mmHg MV E/A: 1.2 MVA(P1/2t): 3.4 cm2 AI dec slope: MV dec slope: 456.1 cm/sec2 212.1 cm/sec2 AI P1/2t: 669.0 msec LV V1 max PG: PA V2 max: PI end-d jackie: TR max jackie: 5.6 mmHg 64.2 cm/sec 84.2 cm/sec 246.6 cm/sec LV V1 max: PA max P.6 mmHg TR max P.5 cm/sec 25.1 mmHg Left Ventricle The left ventricle is grossly normal size. There is mild concentric left ventricular hypertrophy. The left ventricular ejection fraction is normal. Doppler measurements suggest pseudonormalized left ventricular relaxation, which is associated with grade II/IV or mild to moderate diastolic dysfunction. Wall motion cannot be accurately commented on, but no definite regional wall motion abnormalities noted. Right Ventricle The right ventricle is grossly normal size. There is normal right ventricular wall thickness. The right ventricular systolic function is normal. Atria The right atrium is normal in size. The left atrium is moderately dilated. Interarterial septum not well visualized and not well dopplered. Cannot comment on ASD/PFO presence. Mitral Valve The mitral valve is grossly normal. There is no mitral valve stenosis. There is a trace to mild amount of mitral regurgitation. Aortic Valve The aortic valve is grossly normal. There is no aortic valve stenosis. There is a mild amount of aortic regurgitation. Tricuspid Valve The tricuspid valve is not well visualized, but is grossly normal. There is no tricuspid stenosis. There is a trace or physiologic amount of tricuspid regurgitation. Tricuspid regurgitation jet envelope not well defined to measure RV systolic pressure accurately. Pulmonic Valve The pulmonic valve is not well visualized. Great Vessels The aortic root is not well visualized but is probably normal size. The inferior vena cava appeared normal and decreased > 50% with respiration (RAP 5-10 mmHg). Effusions There is no pericardial effusion. : MAGAN GILLETTE > Magan Gillette
== END 2017-08-19 15:15 | disposition home or self-care (01) ==
LOC: ER 23:23 → EH 08-19 01:28 → UNDOADMOB 08-19 01:28 → EH 08-19 02:44 → 4S 08-19 02:44
PROVIDERS: ADMIT Family Medicine; ATTEND Family Medicine
PROC: 3E0234Z Introduction of Serum, Toxoid and Vaccine into Muscle, Percutaneous Approach (ICD-10-PCS; principal; 2017-08-19)
DX: R07.2 Precordial pain (principal); R74.8 Abnormal levels of other serum enzymes; R06.02 Shortness of breath; J44.9 Chronic obstructive pulmonary disease, unspecified; F12.90 Cannabis use, unspecified, uncomplicated; Z95.5 Presence of coronary angioplasty implant and graft; E78.5 Hyperlipidemia, unspecified; G47.33 Obstructive sleep apnea (adult) (pediatric); F17.200 Nicotine dependence, unspecified, uncomplicated; I25.10 Atherosclerotic heart disease of native coronary artery without angina pectoris; M19.90 Unspecified osteoarthritis, unspecified site; F41.9 Anxiety disorder, unspecified; F32.9 Major depressive disorder, single episode, unspecified; I10 Essential (primary) hypertension; R91.8 Other nonspecific abnormal finding of lung field; R00.2 Palpitations; Z79.82 Long term (current) use of aspirin; Z79.899 Other long term (current) drug therapy; Z90.79 Acquired absence of other genital organ(s); Z85.46 Personal history of malignant neoplasm of prostate; Z82.49 Family history of ischemic heart disease and other diseases of the circulatory system; Z23 Encounter for immunization
CPT/HCPCS: 93005 ×2; 99285; 96374; 36415; 82553; 82550; 85025; 80053; 84484 ×2; 85379; 80061; 93306; 71010; 78582; 90686; 94799; 93010 ×2; G0378; A9540; A9567; J2270; J1650; Q9969

== ENCOUNTER 2020-05-19 21:23 | Emergency (ER) | payer OTHER, MEDICARE ==
--- NOTE | 2020-05-19 21:48 | ER Document Report ---
ED Medical Screen (RME) - General Chief Complaint: Urinary Problem Stated Complaint: URINATING BLOOD Time Seen by Provider: 05/19/20 21:43 Mode of Arrival: Ambulatory Information source: Patient Notes: HPI; 60-year-old male presents to the emergency room stating that he is unable to urinate. States it started 7 days ago with clots when he was doing his self cath. Today he states he tried cath twice and was unable to get any urine out. States this is happened in the past and he has to come to the emergency room and have a three-way catheter put in and have it flushed. Denies any fevers, no nausea, no vomiting, PE: Leg and oriented x3. Lungs: Clear to auscultation without rales, rhonchi, wheezes. Heart: Regular rate rhythm without murmurs, rubs, gallops. Unable to do full exam in triage I have greeted and performed a rapid initial assessment of this patient. A comprehensive ED assessment and evaluation of the patient, analysis of test results and completion of the medical decision making process will be conducted by additional ED providers. I have specifically instructed the patient or family members with the patient to immediately return to any nursing staff should anything change in the patient's condition or with their chief complaint. TRAVEL OUTSIDE OF THE [place] IN LAST 30 DAYS: Yes - Related Data Allergies/Adverse Reactions: nifedipine Allergy (Verified 02/17/18 13:56) Past Medical History - Past Medical History Cardiac Medical History: Reports: Hx Coronary Artery Disease, Hx Hypercholesterolemia, Hx Hypertension Denies: Hx Atrial Fibrillation, Hx Congestive Heart Failure, Hx DVT, Hx Pulmonary Embolism Pulmonary Medical History: Reports: Hx Sleep Apnea - Uncertain settings on his home machine Denies: Hx Asthma, Hx COPD Neurological Medical History: Denies: Hx Seizures Endocrine Medical History: Denies: Hx Diabetes Mellitus Type 1, Hx Diabetes Mellitus Type 2, Hx Hyperthyroidism, Hx Hypothyroidism Renal/ Medical History: Denies: Hx Peritoneal Dialysis GI Medical History: Denies: Hx Cirrhosis, Hx Gastroesophageal Reflux Disease, Hx Hepatitis Musculoskeltal Medical History: Reports Hx Arthritis Psychiatric Medical History: Reports: Hx Depression Infectious Medical History: Denies: Hx Hepatitis Past Surgical History: Reports: Hx Cardiac Catheterization, Hx Coronary Stent - 2007, Hx Orthopedic Surgery - Bilateral ankle fusion, due to adverse reaction to nifedipine, per pt., Other - Prostatectomy for carcinoma Physical Exam - Vital signs Vitals: Temp Pulse Resp BP Pulse Ox 99.2 F 79 18 183/91 H 96 05/19/20 21:38 05/19/20 21:38 05/19/20 21:38 05/19/20 21:38 05/19/20 21:38 Course - Vital Signs Vital signs: Temp Pulse Resp BP Pulse Ox 99.2 F 79 18 183/91 H 96 05/19/20 21:38 05/19/20 21:38 05/19/20 21:38 05/19/20 21:38 05/19/20 21:38
[2020-05-19 22:42] LABS: ABSOLUTE EOSINOPHILS # (AUTO) 0.3 10^3/uL (0.0-0.6); ABSOLUTE LYMPHOCYTES (AUTO) 2.3 10^3/uL (0.5-4.7); ABSOLUTE MONOCYTES (AUTO) 0.7 10^3/uL (0.1-1.4); TOTAL CELLS COUNTED % (AUTO) 100 %
[2020-05-19 22:52] LABS: ALBUMIN 4.2 g/dL (3.5-5.0); ALKALINE PHOSPHATASE 91 U/L (38-126); ASPARTATE AMINO TRANSFERASE 25 U/L (17-59); BILIRUBIN,TOTAL 0.3 mg/dL (0.2-1.3); BLOOD UREA NITROGEN 21 mg/dL (7-20); CALCIUM 9.1 mg/dL (8.4-10.2); CHLORIDE 103 mmol/L (98-107); GLUCOSE 97 mg/dL (75-110); POTASSIUM 3.5 mmol/L (3.6-5.0); TOTAL PROTEIN 7.1 g/dL (6.3-8.2)
[2020-05-19 22:57] LABS: ANION GAP 6 (5-19); CARBON DIOXIDE 28 mmol/L (22-30)
[2020-05-19 23:12] LABS: ABSOLUTE BASOPHILS # (AUTO) 0.1 10^3/uL (0.0-0.2); BASOPHILS % (AUTO) 1.2 % (0-2); EOSINOPHILS % (AUTO) 3.7 % (0-6); HEMATOCRIT 43.8 % (37.9-51.0); HEMOGLOBIN 15.3 g/dL (13.5-17.0); LYMPHOCYTES % (AUTO) 30.7 % (13-45); MEAN CORPUSCULAR HEMOGLOBIN 35.4 pg (27.0-33.4); MEAN CORPUSCULAR VOLUME 101 fl (80-97); MONOCYTES % (AUTO) 9.5 % (3-13); PLATELET COUNT 216 10^3/uL (150-450); RED BLOOD COUNT 4.33 10^6/uL (4.35-5.55); RED CELL DISTRIBUTION WIDTH 13.9 % (11.5-14.0); SEGMENTED NEUTROPHILS % (AUTO) 54.9 % (42-78); WHITE BLOOD COUNT 7.4 10^3/uL (4.0-10.5)
--- NOTE | 2020-05-20 00:02 | ER Document Report ---
ED General - General Chief Complaint: Inability to Void Stated Complaint: URINATING BLOOD Time Seen by Provider: 05/19/20 21:43 [facility]: [facility] [[facility]] - Follow up as needed Mode of Arrival: Ambulatory Information source: Patient Notes: Patient is a 60-year-old male presenting to the emergency department chief complaint of urinary retention and hematuria. 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 Patient states he last catheterized himself about an hour ago and he is having difficulty urinating. He states that he is passing rather large clots and his catheters cannot seem to handle it. Patient states he normally comes in has bladder irrigation and then is discharged. Patient has no other complaints at this time. TRAVEL OUTSIDE OF THE [place] IN LAST 30 DAYS: Yes - HPI Onset: Last week Onset/Duration: Intermittent, Worse Quality of pain: Achy Severity: Mild Pain Level: 1 Associated symptoms: denies: Productive cough, Diarrhea, Nausea, Vomiting, Shortness of breath Exacerbated by: Denies Relieved by: Denies Similar symptoms previously: Yes Recently seen / treated by doctor: No - Related Data Allergies/Adverse Reactions: nifedipine Allergy (Verified 05/19/20 23:55) Home Medications: amilodipine, pt cant remember Past Medical History - General Information source: Patient - Social History Smoking Status: Current Every Day Smoker Cigarette use (# per day): Yes Chew tobacco use (# tins/day): No Smoking Education Provided: Yes Frequency of alcohol use: None Drug Abuse: None Family History: None, Hypertension Patient has suicidal ideation: No Patient has homicidal ideation: No - Past Medical History Cardiac Medical History: Reports: Hx Coronary Artery Disease, Hx Hypercholesterolemia, Hx Hypertension Denies: Hx Atrial Fibrillation, Hx Congestive Heart Failure, Hx DVT, Hx Pulmonary Embolism Pulmonary Medical History: Reports: Hx Sleep Apnea - Uncertain settings on his home machine Denies: Hx Asthma, Hx COPD Neurological Medical History: Denies: Hx Seizures Endocrine Medical History: Denies: Hx Diabetes Mellitus Type 1, Hx Diabetes Mellitus Type 2, Hx Hyperthyroidism, Hx Hypothyroidism Renal/ Medical History: Reports: Other - 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 Denies: Hx Peritoneal Dialysis GI Medical History: Denies: Hx Cirrhosis, Hx Gastroesophageal Reflux Disease, Hx Hepatitis Musculoskeletal Medical History: Reports Hx Arthritis Psychiatric Medical History: Reports: Hx Depression Infectious Medical History: Denies: Hx Hepatitis Past Surgical History: Reports: Hx Cardiac Catheterization, Hx Coronary Stent - 2007, Hx Orthopedic Surgery - Bilateral ankle fusion, due to adverse reaction to nifedipine, per pt., Other - Prostatectomy for carcinoma Review of Systems - Review of Systems Notes: REVIEW OF SYSTEMS: CONSTITUTIONAL : Denies fever, chills, or sweats. Denies recent illness. EENT: Denies eye, ear, throat, or mouth pain or symptoms. Denies nasal or sinus congestion. CARDIOVASCULAR: Denies chest pain. RESPIRATORY: Denies cough, cold, or chest congestion. Denies shortness of breath, difficulty breathing, or wheezing. GASTROINTESTINAL: Denies abdominal pain. Denies nausea, vomiting, or diarrhea. Denies constipation. GENITOURINARY: Per HPI MUSCULOSKELETAL: Denies neck or back pain or joint pain or swelling. SKIN: Denies rash or skin lesions. HEMATOLOGIC : Denies easy bruising or bleeding. NEUROLOGICAL: Denies altered mental status or loss of consciousness. Denies headache. Denies weakness or paralysis or loss of use of either side. Denies problems with gait or speech. Denies sensory or motor loss. PSYCHIATRIC: Denies suicidal or homicidal ideations 10 Systems are negative unless otherwise specified above Physical Exam - Vital signs Vitals: Temp Pulse Resp BP Pulse Ox 99.2 F 79 18 183/91 H 96 05/19/20 21:38 05/19/20 21:38 05/19/20 21:38 05/19/20 21:38 05/19/20 21:38 - Notes Notes: PHYSICAL EXAMINATION: GENERAL: Well-appearing, well-nourished and in no acute distress. HEAD: Atraumatic, normocephalic. EYES: Pupils equal round and reactive to light, extraocular movements intact, sclera anicteric, conjunctiva are normal. ENT: nares patent, oropharynx clear without exudates. Moist mucous membranes. NECK: Normal range of motion, supple without lymphadenopathy, no appreciable JVD LUNGS: Lungs clear to auscultation bilaterally and equal. No wheezes rales or rhonchi. HEART: Regular rate and rhythm without murmurs ABDOMEN: Soft, minimally tender to the suprapubic region, normal bowel sounds. No guarding, no rebound. No masses appreciated. EXTREMITIES: Active full range of motion, no pitting or edema. No cyanosis. 2+ pulses x4 NEUROLOGICAL: No focal neurological deficits. Moves all extremities spontaneously and on command. SKIN: Warm, Dry, and intact. Normal turgor, no rashes or lesions noted. Course - Re-evaluation Re-evalutation: 05/20/20 01:54 I been notified by nursing staff there were finally successful passing a catheter and currently are doing CBI. 05/20/20 02:14 I was notified by nursing staff that patient is currently clear to CBI. Prior to CBI patient was able to urinate on his own and passed a rather large blood clot. 05/20/20 02:39 Urinalysis is reviewed there is no signs of infection. Patient is agreeable with having catheter removed and will follow-up with his urologist next week. Patient is stable at time of discharge. - Vital Signs Vital signs: Temp Pulse Resp BP Pulse Ox 98.2 F 50 L 18 183/88 H 97 05/20/20 00:10 05/20/20 00:10 05/20/20 00:10 05/20/20 00:10 05/20/20 00:10 - Laboratory Result Diagrams: 05/19/20 22:16 05/19/20 22:16 Laboratory results interpreted by me: 05/19/20 05/19/20 05/20/20 22:16 22:16 01:50 RBC 4.33 L MCV 101 H MCH 35.4 H Sodium 136.9 L Potassium 3.5 L BUN 21 H Creatinine 1.59 H Est GFR ( Amer) 54 L Est GFR (MDRD) Non-Af 44 L Urine Protein 100 H Urine Blood MODERATE H Discharge - Discharge Clinical Impression: Tobacco dependency, Renal insufficiency, Urinary retention Hematuria Qualifiers: Hematuria type: gross Qualified Code(s): R31.0 - Gross hematuria Condition: Stable Disposition: HOME, SELF-CARE Additional Instructions: Hematuria Hematuria, or blood in your urine, can be caused by minor medical problems, such as a bladder infection, or by more serious medical conditions, such as kidney stones or even tumors of the bladder or kidney. If the cause of the hematuria is known (such as a bladder infection) and can be treated, it may not need further evaluation. If the cause is not known, it will usually require further evaluation by a specialist, such as a urologist. In particular, unexplained hematuria in the older patient must be evaluated to rule out a serious condition, such as a bladder or kidney tumor. If the hematuria worsens or you are passing clots and then are unable to urinate, you should be re-evaluated. A catheter may need to be placed in the bladder to permit passage of urine. If you develop high fever, severe pain, or other new or worsening symptoms, return to the Emergency Department for re- evaluation. Urinary Retention Urinary retention is inability to empty the bladder. It can result from a urine infection, or from mechanical problems such as an enlarged prostate gland or swelling of the urethra. Drugs or alcohol can also lead to urine retention. The condition is usually treated by passage of a catheter. If the physician thinks the problem will continue, the catheter may be left in place for a few days. Sometimes drugs are used to stimulate the bladder if the physician feels that inadequate bladder contraction is the cause. If the condition leading to the retention is a chronic one, such as an enlarged prostate, you will be referred to a specialist for further care. Call the physician or return if you develop fever, flank or back pain, pain on urination, or recurrent difficulty passing the urine. Referrals: [facility] [Primary [facility] Provider] - Follow up as needed
[2020-05-20 02:33] LABS: BILIRUBIN,URINE NEGATIVE (NEGATIVE); GLUCOSE, URINE NEGATIVE (NEGATIVE); KETONES,URINE NEGATIVE (NEGATIVE); LEUKOCYTE ESTERASE,URINE NEGATIVE (NEGATIVE); NITRITE,URINE NEGATIVE (NEGATIVE); PROTEIN,URINE 100 mg/dL (NEGATIVE); URINE SPECIFIC GRAVITY 1.012; UROBILINOGEN,URINE NEGATIVE mg/dL (<2.0)
[2020-05-20 02:34] LABS: APPEARANCE,URINE CLOUDY; COLOR,URINE RED
[2020-05-20 03:23] VITALS: BP 170/106
== END 2020-05-20 03:18 | disposition home or self-care (01) ==
LOC: ER 21:23
DX: R31.0 Gross hematuria (principal); N28.9 Disorder of kidney and ureter, unspecified; R33.9 Retention of urine, unspecified; F17.210 Nicotine dependence, cigarettes, uncomplicated; I25.10 Atherosclerotic heart disease of native coronary artery without angina pectoris; E78.00 Pure hypercholesterolemia, unspecified; I10 Essential (primary) hypertension
CPT/HCPCS: 36415; 51702; 80053; 81001; 85025; 99283